=== PATIENT | male | born 1985 | race African-American/Black ===

== ENCOUNTER 2023-10-07 19:33 | Emergency (ER) | payer BC ==
[2023-10-07 19:39] VITALS: BMI 25.0
[2023-10-07] MEDS ORDERED: DEXAMETHASONE SOD PHOSPHATE 10 MG/1 ML VIAL IVPUSH ONE (21:01)
[2023-10-07] MEDS ORDERED: ACETAMINOPHEN 1000 MG/100 ML BAG IVPB ONE (21:01)
[2023-10-07] MEDS ORDERED: SODIUM CHLORIDE 0.9% 500 ML INFUS.BAG IV ONE (21:01)
[2023-10-07] MEDS ORDERED: ACETAMINOPHEN INJECTION 100 ML IVPB ONE (21:08)
[2023-10-07] MEDS ORDERED: DEXAMETHASONE SOD PHOSPHATE 10 MG/1 ML VIAL ONE (21:08)
[2023-10-07 21:25] LABS: BASO % 1.2 % (0-2.0); EOS % 1.3 % (0-4.5); HEMATOCRIT 38.7 % (35.4-49); HEMOGLOBIN 12.9 GM/dL (11.7-16.9); LYMPH % 50.6 % (8-40); MCH 27.9 pg (25.7-33.7); MCHC 33.3 g/dl (32.0-35.9); MEAN CELL VOLUME 83.9 fl (80-96); MEAN PLT VOLUME 9.3 fl (7.5-11.1); MONO % 9.1 % (3.8-10.2); NEUT % 37.8 % (42.8-82.8); PLATELET COUNT 166 10^3/uL (134-434); RBC 4.61 M/mm3 (4.00-5.60); RDW 13.8 % (11.9-15.9); WHITE BLOOD COUNT 9.2 K/mm3 (4.0-10.0)
[2023-10-07 21:50] LABS: POTASSIUM 4.1 mmol/L (3.5-5.1)
[2023-10-07 21:52] LABS: CALCIUM 8.4 mg/dL (8.5-10.1)
[2023-10-07 21:53] LABS: ALBUMIN 3.4 g/dl (3.4-5.0); BLOOD UREA NITROGEN 13.6 mg/dL (7-18)
[2023-10-07 21:56] LABS: CREATININE 1.2 mg/dL (0.55-1.3)
[2023-10-07 21:57] LABS: BILIRUBIN,TOTAL 0.5 mg/dL (0.2-1)
[2023-10-08 00:36] VITALS: BP 115/70; PULSE 81; RESP 16; TEMP 98.3
[2023-10-08] MEDS ORDERED: CLINDAMYCIN 600MG PREMIX IVPB 600 MG/50 ML BAG IVPB ONE ×2 (01:05→01:14)
== END 2023-10-08 02:20 | disposition home or self-care (01) ==
LOC: JERFT 19:33 → JER 19:33
PROC: 3E033GC Introduction of Other Therapeutic Substance into Peripheral Vein, Percutaneous Approach (ICD-10-PCS; 2023-10-07)
PROC: 3E033GC Introduction of Other Therapeutic Substance into Peripheral Vein, Percutaneous Approach (ICD-10-PCS; 2023-10-07)
PROC: 3E033GC Introduction of Other Therapeutic Substance into Peripheral Vein, Percutaneous Approach (ICD-10-PCS; principal; 2023-10-08)
DX: R22.0 Localized swelling, mass and lump, head (principal)
CPT/HCPCS: 36415; 70487-TC; 80053; 85025; 87651; 99285-25; J1100; Q9967